=== PATIENT | male | born 1970 | race African-American/Black ===

== ENCOUNTER → 2021-08-24 | Emergency (ER) | payer SELFPAY ==
[~2021-08-24] VITALS: Ht 200.7 cm; Wt 90.7 kg
[~2021-08-24] MED LIST: CYCL5TAB PO; HYDR-3972 PO
[2021-08-24 15:40] VITALS: BP 108/50
--- NOTE | 2021-08-24 17:22 | NUR ---
Patient discharged to home in stable condition. Written and verbal after care instructions given. Patient verbalizes understanding of instruction.
== END | disposition home or self-care (01) ==
LOC: ER 15:27
DX: M54.41 Lumbago with sciatica, right side (principal); Z60.2 Problems related to living alone; Z79.899 Other long term (current) drug therapy
CPT/HCPCS: 72100-TC; 72170-TC

== ENCOUNTER 2022-02-07 18:47 | Emergency (ER) | payer MEDICAID, OTHER ==
[~2022-02-07] VITALS: Ht 200.7 cm; Wt 86.2 kg
[2022-02-07 19:02] VITALS: BP 106/70
[2022-02-07] MEDS ORDERED: KETOROLAC TROMETHAMINE INJ 30 MG/ML VIAL ONE (19:29)
[2022-02-07] MEDS ORDERED: KETOROLAC TROMETHAMINE INJ 30 MG/ML VIAL IM ONE (19:30)
[2022-02-07] MEDS ORDERED: TRAM-351 PO (20:24)
== END 2022-02-07 20:30 | disposition home or self-care (01) ==
LOC: ER 18:50
DX: M25.511 Pain in right shoulder (principal); Z60.2 Problems related to living alone; Z79.899 Other long term (current) drug therapy
CPT/HCPCS: 99283; 96372; 73030; J1885

== ENCOUNTER 2022-09-12 14:45 | Emergency (ER) | payer MEDICAID, OTHER ==
[~2022-09-12] VITALS: Ht 200.7 cm; Wt 88.5 kg
[~2022-09-12 14:45] MED LIST changes: +TRAM-351 PO
--- NOTE | 2022-09-12 15:30 | NUR ---
BIBS noticed cloudy urine x 2 weeks then noticed milky urine this morning, denies pain.
--- NOTE | 2022-09-12 16:23 | NUR ---
URINE SAMPLE SENT TO LAB
[2022-09-12 17:01] LABS: BILIRUBIN,URINE NEGATIVE (NEGATIVE); COLOR,URINE YELLOW (YELLOW); LEUKOCYTE ESTERASE ,URINE NEGATIVE (NEGATIVE); NITRITE, URINE NEGATIVE (NEGATIVE); PH,URINE 6.5 (5.0-8.0); PROTEIN,URINE NEGATIVE (NEGATIVE); UGLUCOSE NEGATIVE (NEGATIVE); UROBILINOGEN,URINE 0.2 EU/dL (0.2)
[2022-09-12] MEDS ORDERED: DOXY100T2 PO (17:40)
[2022-09-12] MEDS ORDERED: CEFTRIAXONE 1 G VIAL ONE (17:56)
[2022-09-12] MEDS ORDERED: LIDOCAINE /MPF 1% VIAL 5 ML VIAL ONE (17:57)
[2022-09-12] MEDS ORDERED: CEFTRIAXONE 1 G VIAL IM ONE (18:00)
--- NOTE | 2022-09-12 18:06 | NUR ---
Patient discharged to home in stable condition. Written and verbal after care instructions given. Patient verbalizes understanding of instruction.
[2022-09-12 19:53] VITALS: BP 135/85
== END 2022-09-12 18:06 | disposition home or self-care (01) ==
LOC: ER 14:54
DX: Z11.3 Encounter for screening for infections with a predominantly sexual mode of transmission (principal); Z60.2 Problems related to living alone; Z79.899 Other long term (current) drug therapy
CPT/HCPCS: 99283; 96372; 81003; 87491; 87591; J0696; J3490

== ENCOUNTER 2022-09-17 00:33 | Emergency (ER) | payer MEDICAID ==
[~2022-09-17] VITALS: Ht 203.2 cm; Wt 86.2 kg
[~2022-09-17 00:33] MED LIST changes: +DOXY100T2 PO
[2022-09-17] MEDS ORDERED: ONDANSETRON HCL/PF 4 MG/2 ML VIAL ONE (00:42)
[2022-09-17] MEDS ORDERED: KETOROLAC TROMETHAMINE 15 MG/ML VIAL ONE (00:42)
--- NOTE | 2022-09-17 00:54 | NUR ---
Patient came in to the er c/o abd pain. On room air, ambulatory with steady gait. IV intact and patent, blood drawned and sent to lab. Kept comfortable, will continue to monitor accordingly.
--- NOTE | 2022-09-17 00:57 | NUR ---
URINE SENT TO LAB
[2022-09-17] MEDS ORDERED: ONDANSETRON HCL/PF 4 MG/2 ML VIAL IVP ONE (01:00)
[2022-09-17] MEDS ORDERED: IV NS 0.9% 1,000 ML BAG IV ONE (01:00)
[2022-09-17] MEDS ORDERED: KETOROLAC TROMETHAMINE INJ 30 MG/ML VIAL IV ONE (01:00)
[2022-09-17 01:14] LABS: BASOPHILS % (AUTO) 0.1 % (0.0-2.0); EOSINOPHILS % (AUTO) 0.1 % (0.0-6.0); HEMATOCRIT 48 % (39-51); HEMOGLOBIN 15.3 g/dL (13.5-17.5); LYMPHOCYTES # (AUTO) 0.8 K/uL (0.8-4.8); LYMPHOCYTES % (AUTO) 4.9 % (20.0-44.0); MEAN CORPUSCULAR HGB CONC 32 g/dl (31.0-36.0); MEAN CORPUSCULAR VOLUME 91 fL (80-96); MONOCYTES # (AUTO) 0.6 K/uL (0.1-1.30); MONOCYTES % (AUTO) 3.7 % (2.0-12.0); NEUTROPHILS # (AUTO) 14.4 K/uL (1.8-8.9); NEUTROPHILS % (AUTO) 91.2 % (43.0-81.0); PLATELET COUNT (AUTO) 173 K/uL (150-450); RED BLOOD CELL COUNT(AUTO) 5.35 MIL/uL (4.5-6.0); WHITE BLOOD COUNT (AUTO) 15.8 K/uL (4.3-11.0)
[2022-09-17 01:21] LABS: BILIRUBIN,URINE 1+ (NEGATIVE); COLOR,URINE DARK YELLOW (YELLOW); LEUKOCYTE ESTERASE ,URINE NEGATIVE (NEGATIVE); NITRITE, URINE NEGATIVE (NEGATIVE); PROTEIN,URINE TRACE mg/dl (NEGATIVE); UGLUCOSE TRACE mg/dL (NEGATIVE)
[2022-09-17 01:25] LABS: BACTERIA,URINE Rare /HPF (None Seen); CALCIUM, SERUM 9.5 mg/dL (8.5-10.1); CREATININE 1.3 mg/dL (0.6-1.3); MUCUS,URINE Moderate /LPF (None Seen); POTASSIUM 3.8 mmol/L (3.5-5.1); SQUAMOUS EPITHELIAL CELL,UR Few /HPF (None Seen); WBC,URINE 0-2 /HPF (0-3)
[2022-09-17] MEDS ORDERED: CIPROFLOXACIN HCL 250 MG TABLET PO ONE (02:00)
[2022-09-17] MEDS ORDERED: METRONIDAZOLE 500 MG TABLET PO ONE (02:00)
[2022-09-17] MEDS ORDERED: CIPR500T5 PO (02:04)
[2022-09-17] MEDS ORDERED: NABU-141 PO (02:04)
[2022-09-17] MEDS ORDERED: OXYC-128 PO (02:04)
[2022-09-17] MEDS ORDERED: ONDA4TAB11 PO (02:04)
[2022-09-17] MEDS ORDERED: METR500T PO (02:04)
[2022-09-17] MEDS ORDERED: CIPROFLOXACIN HCL 500 MG TABLET ONE (02:06)
[2022-09-17] MEDS ORDERED: METRONIDAZOLE 500 MG TABLET ONE (02:06)
[2022-09-17] MEDS ORDERED: MORPHINE SULFATE INJ 2 MG/ML DISP.SYRIN ONE (02:12)
[2022-09-17] MEDS ORDERED: MORPHINE SULFATE INJ 2 MG/ML DISP.SYRIN IV ONE (02:30)
[2022-09-17 02:38] VITALS: BP 114/60
--- NOTE | 2022-09-17 02:39 | NUR ---
Patient discharged to home in stable condition. Written and verbal after care instructions given. Patient verbalizes understanding of instruction.IV removed. Catheter intact and site benign. Pressure and 4x4 applied to site. No bleeding noted.
== END 2022-09-17 02:39 | disposition home or self-care (01) ==
LOC: ER 00:34
DX: K57.92 Diverticulitis of intestine, part unspecified, without perforation or abscess without bleeding (principal); Z60.2 Problems related to living alone; Z79.899 Other long term (current) drug therapy
CPT/HCPCS: 99285; 74176; 96374; 96375; 96361; 85025; 80048; 81001; 36415; J2405; J7030; J2270; J1885